=== PATIENT | female | born 1980 | race Two or more races ===

== ENCOUNTER 2017-03-28 19:20 | Emergency (ER) | payer OTHER ==
[~2017-03-28] VITALS: Ht 172.7 cm; Wt 137.9 kg
[2017-03-28 19:28] VITALS: BP 155/82
== END 2017-03-28 19:56 | disposition home or self-care (01) ==
LOC: ER 19:24
DX: J11.1 Influenza due to unidentified influenza virus with other respiratory manifestations (principal); I10 Essential (primary) hypertension
CPT/HCPCS: 99283; A4606; Z7610